=== PATIENT | female | born 1985 | race Caucasian/White ===

== ENCOUNTER 2016-12-21 10:35 | Emergency (ER) | payer BC, OTHER ==
[~2016-12-21] VITALS: Ht 152.4 cm; Wt 64.0 kg
[~2016-12-21 10:35] MED LIST: PRENTAB62 PO
[2016-12-21 10:38] VITALS: BP 129/67; PULSE 58; RESP 15; TEMP 98.1; O2SAT 98
--- NOTE | 2016-12-21 10:56 | PD ---
HPI Chief Complaint: Back/ Neck Pain or Injury Time Seen by Provider: 10:54 Travel History International Travel<30 days: No Contact w/Intl Traveler<30days: No Traveled to known affect area: No History of Present Illness HPI 31-year-old female patient presents the emergency Department with complaints of lower back pain from the thorax down to the hips which is been ongoing and progressive over the last several days. Patient denies any specific injury. Patient works as a cook. Patient states is worse when she was trying to sleep last night with spasms. Patient's pain is currently 7/10. Patient denies nausea, vomiting, or urinary symptoms. She denies fever. She has no known drug allergies. PFSH Past Medical History ?: LMP: 10/26/16 Social History Alcohol Use: No Tobacco Use: No Substance Use: No Allergies-Medications (Allergen,Severity, Reaction): Coded Allergies: No Known Allergies (Unverified , 12/21/16) Reported Meds & Prescriptions Reported Meds & Active Scripts Active Reported Vitamins Plus ( Vit W/ Ferrous Fumara) Plus Tab 1 PO Review of Systems Except as stated in HPI: all other systems reviewed are Neg General / Constitutional: No: Fever Eyes: No: Visual changes HENT: No: Headaches Cardiovascular: No: Chest Pain or Discomfort Respiratory: No: Shortness of Breath Gastrointestinal: No: Abdominal Pain Genitourinary: No: Dysuria Musculoskeletal: Positive: Myalgias, Pain Skin: No Rash Neurologic: No: Weakness Psychiatric: No: Depression Endocrine: No: Polydipsia Hematologic/Lymphatic: No: Easy Bruising Physical Exam Narrative GENERAL: Patient appears in mild distress. SKIN: Warm and dry. Normal color. Normal turgor. No rash. HEAD: Atraumatic. Normocephalic. EYES: Pupils equal and round. No scleral icterus. No injection or drainage. ENT: No nasal bleeding or discharge. Mucous membranes pink and moist. Pharynx is clear. NECK: Trachea midline. Neck is supple nontender. CARDIOVASCULAR: Regular rate and rhythm. No murmurs gallops or rubs. RESPIRATORY: No accessory muscle use. Clear to auscultation. Breath sounds equal bilaterally. GASTROINTESTINAL: Abdomen soft, non-tender, nondistended. Hepatic and splenic margins not palpable. No CVA tenderness. MUSCULOSKELETAL: Extremities without clubbing, cyanosis, or edema. No obvious deformities. Patient has generalized muscular tenderness throughout the lower thoracic and lumbar spinal area. There is no bony tenderness or step-off. NEUROLOGICAL: Awake and alert. No obvious cranial nerve deficits. Motor grossly within normal limits. Five out of 5 muscle strength in the arms and legs. Normal speech. PSYCHIATRIC: Appropriate mood and affect; insight and judgment normal. Data Data Last Documented VS Vital Signs Date Time Temp Pulse Resp B/P Pulse Ox O2 Delivery O2 Flow Rate FiO2 12/21/16 10:38 98.1 58 15 129/67 98 Orders Urinalysis - C+S If Indicated (12/21/16 10:56) Ed Urine Pregnancytest Poc (12/21/16 10:56) Labs Laboratory Tests Test 12/21/16 11:05 Urine Color COLORLESS Urine Turbidity CLEAR Urine pH 5.5 Urine Specific [place] 1.005 Urine Protein NEG mg/dL Urine Glucose (UA) NEG mg/dL Urine Ketones NEG mg/dL Urine Occult Blood NEG Urine Nitrite NEG Urine Bilirubin NEG Urine Urobilinogen LESS THAN 2.0 MG/DL Urine Leukocyte Esterase SMALL Urine RBC LESS THAN 1 /hpf Urine WBC 1 /hpf Urine Squamous Epithelial 3 /hpf Cells Urine Bacteria OCC /hpf Urine Mucus FEW /lpf Microscopic Urinalysis Comment CULT NOT INDICATED MDM Medical Decision Making Medical Screen Exam Complete: Yes Emergency Medical Condition: Yes Differential Diagnosis Muscle skeletal pain. Muscle spasm. Urinary tract infection. Narrative Course Patient is medically stable at time of exam. Urinalysis and urine checked. Urinalysis and urine are both negative. Patient was treated for muscle skeletal pain with ibuprofen 600 mg 4 times a day #40. Patient also take acetaminophen 500 mg 2 tabs every 6 hours #60. Patient is given a muscle relaxant called Norflex 100 mg twice a day #10. Patient is to use heat and ice and gentle stretching and follow-up with her primary care physician if symptoms persist. Patient can return to emergency Department with worsening symptoms as necessary. Diagnosis Primary Impression: Pain in lower back Qualified Code: M54.5 - Acute bilateral low back pain without sciatica Patient Instructions: Acute Low Back Pain (ED), General Instructions, Lower Back Exercises (ED) Additional Instructions: Urinalysis and urine are both negative. Patient was treated for muscle skeletal pain with ibuprofen 600 mg 4 times a day #40. Patient also take acetaminophen 500 mg 2 tabs every 6 hours #60. Patient is given a muscle relaxant called Norflex 100 mg twice a day #10. Patient is to use heat and ice and gentle stretching and follow-up with her primary care physician if symptoms persist. Patient can return to emergency Department with worsening symptoms as necessary. Med/Other Pt SpecificInfo: Prescription(s) given Disposition: 01 DISCHARGE HOME Condition: Stable Weston Baptiste Dec 21, 2016 10:56
[2016-12-21 11:36] LABS: BACTERIA, URINE OCC /hpf; BLOOD, URINE NEG (NEG); COMMENT (UR) CULT NOT INDICATED; CULTURE IF INDICATED CULT NOT INDICATED; GLUCOSE,URINE NEG (NEG); KETONE, URINE NEG (NEG); MUCUS URINE FEW /lpf (OCC); NITRITE,URINE NEG (NEG); PH, URINE 5.5 (5.0-8.5); SQUAMOUS EPITHELIAL CELL URINE 3 /hpf (0-5); URINE COLOR COLORLESS (YELLW/STRAW)
[2016-12-21] MEDS ORDERED: ORPH100T99 PO (11:49)
[2016-12-21] MEDS ORDERED: IBUP-232 PO (11:49)
[2016-12-21] MEDS ORDERED: EXTR500C PO (11:49)
== END 2016-12-21 12:36 | disposition home or self-care (01) ==
LOC: NEPB 10:35
DX: M54.5 Low back pain (principal); M62.830 Muscle spasm of back
CPT/HCPCS: 81001; 99283